=== PATIENT | female | born 1960 | race Caucasian/White ===

== ENCOUNTER 2017-01-10 21:50 | Emergency (ER) | payer MEDICAID ==
--- NOTE | 2017-01-10 22:01 | ERNOTE ---
Dyspnea - General Presenting Symptoms: other - cough Time Seen by Provider: 01/10/17 21:55 Source: patient Exam Limitations: no limitations - Immun/Allergies/Home Medications Immunizations: IMMUNIZATION HX Immunizations Up to Date Yes History of Influenza Vaccine Yes Hx Pneumococcal Vaccination No Allergies/Adverse Reactions: Allergies Penicillins Adverse Reaction (Mild, Verified 08/23/16 07:49) Other nausea red dye Adverse Reaction (Mild, Verified 08/23/16 07:49) nausea metals Allergy (Mild, Uncoded 08/23/16 07:49) Other skin irritation plastic tape Allergy (Mild, Uncoded 08/23/16 07:49) Other skin irritation Home Medications: HOME MEDICATIONS Isosorbide Mononitrate [Imdur] 60 mg PO DAILY 03/03/15 [Last Taken Unknown] Lisinopril [Zestril] 40 mg PO DAILY 03/03/15 [Last Taken Unknown] Metoprolol Succinate [Toprol Xl] 25 mg PO BID 03/03/15 [Last Taken 03/03/15 06: 00] Nitroglycerin [Nitrostat] 0.4 mg SL Q5MIN PRN 03/03/15 [Last Taken 03/03/15 06: 00] Simvastatin [Zocor] 20 mg PO HS 03/03/15 [Last Taken Unknown] Albuterol Sulfate [Ventolin Hfa] 2 puff IH QID PRN 09/20/15 [Last Taken Unknown] Acetaminophen [Tylenol] 650 mg PO Q6H PRN #1 tablet 02/06/16 [Last Taken Unknown ] Albuterol Sulfate [Albuterol Sulfate 2.5 MG/0.5ML] 2.5 mg IH QIDRT PRN #0 vial.neb 02/06/16 [Last Taken Unknown] DULoxetine HCL [Cymbalta] 60 mg PO BID capsule.sa 02/06/16 [Last Taken Unknown] Levothyroxine Sodium [Synthroid] 50 mcg PO DAILY@0700 tablet 02/06/16 [Last Taken Unknown] Amitriptyline HCl [Elavil] 10 mg PO BID 04/29/16 [Last Taken Unknown] Aspirin 81 mg PO DAILY 04/29/16 [Last Taken Unknown] Diazepam [Valium] 5 mg PO BID PRN 04/29/16 [Last Taken Unknown] Furosemide [Lasix] 160 mg PO DAILY 04/29/16 [Last Taken Unknown] Gabapentin [Neurontin] 600 mg PO TID 04/29/16 [Last Taken Unknown] Hydrochlorothiazide [Hydrodiuril] 25 mg PO DAILY 04/29/16 [Last Taken Unknown] hydrOXYzine HCL [Atarax] 25 mg PO QID 04/29/16 [Last Taken Unknown] Aspirin/Calcium Carbonate/Mag [Aspirin Buffered 325 mg Tab] 325 mg PO DAILY # 100 tablet 08/23/16 [Last Taken Unknown] Benzonatate [Tessalon Perle] 100 mg PO TID PRN #20 capsule 01/11/17 [Last Taken Unknown] guaiFENesin [Mucinex] 600 mg PO BID #10 tab.er.12h 01/11/17 [Last Taken Unknown] - History of Present Illness Narrative: Pt states she has been coughing for 2 days. she is coughing so hard she has had 2 syncopal episodes Severity: moderate, severe Initiating event: Reports: upper resp illness Review of Systems - Review of Systems Constitutional: Present: See HPI, weakness, fatigue EYE: Present: no symptoms reported ENT: Present: nose congestion Respiratory: Present: See HPI Cardiology: Present: no symptoms reported Gastrointestinal/Abdominal: Present: no symptoms reported Genitourinary: Present: no symptoms reported Musculoskeletal: Present: no symptoms reported Skin: Present: no symptoms reported Neurological: Present: no symptoms reported Endocrine: Present: excessive sweating Hematologic/Lymphatic: Present: no symptoms reported Psych: Present: no symptoms reported - Patient's Past Medical History Patient History - Medical: Arthritis, Depression, Fibromyalgia, Hypothyroidism, Migraines, Obesity, Renal Failure, Seizures Patient History - Cardiac/Respiratory: COPD, CVA/Stroke, Hypertension, Hyperlipidemia, CPAP/BiPAP Home Use, Sleep Apnea Patient History - Cancer: No Hx of Cancer Patient History - Surgical Procedures: Cholecystectomy, Coronary Bypass Surgery , Cardiac stent, Gastric Bypass, Other Patient History - Other: None - Family History Mother Family History - Medical: , Diabetes Type 2 Family History - Cardiac/Respiratory: Cardiac Arrest, Hypertension Father Family History - Medical: Family History - Cardiac/Respiratory: Coronary Heart Disease, Hypertension, Peripheral Vascular Disease - Social History Living Situations: home Abuse History: No History of abuse Psych History: Hx of Depression Alcohol Use: none Drug Use: none - Immunizations Immunizations Up to Date: Yes Hx Pneumococcal Vaccination: No History of Influenza Vaccine: Yes Physical Exam - Physical Exam General Appearance: Present: wd/wn, alert, mild distress, obese Eye Exam: Normal inspection: bilateral, PERRL: bilateral Neck: Present: normal inspection, nontender Respiratory: Present: no respiratory distress, other - coarse lung sounds throughout Cardiovascular/Chest: Present: regular rate, rhythm Gastrointestinal/Abdominal: Present: normal bowel sounds, nontender Extremity Exam: Present: extremity edema Neurological Exam: Present: alert, oriented, normal mood/affect Skin Exam: Present: normal color, warm/dry Lymphatic Exam: Present: no adenopathy ED Progress - Results and Orders Patient's Lab Results:: I have reviewed the patient's lab results. Results and Orders: Laboratory Tests 01/10/17 01/10/17 22:15 22:15 WBC 10.0 Hgb 10.8 L Hct 33.1 L Plt Count 203 Sodium 140 Potassium 3.8 Chloride 99 Carbon Dioxide 33.3 H Anion Gap 11.5 BUN 31 H D Creatinine 1.82 H D Est GFR (Non-Af Amer) 30 L D Random Glucose 103 Calcium 9.5 Total Bilirubin 0.2 AST 14 ALT 12 L Alkaline Phosphatase 103 B-Natriuretic Peptide 169 Total Protein 7.3 Albumin 3.2 L - Vital Signs Patient's Vital Signs:: I have reviewed the patient's vital signs. - Progress/Reassessment Progress:: Improved Progress Note-Subjective: Tessalon perles helped greatly with cough while in ED Departure Clinical Impression: Bronchitis - Departure Disposition: Home Follow Up Needed Condition: Good Instructions: Acute Bronchitis Additional Instructions: See your regular doctor if not improving Referrals: Shonda Pereira DO [Primary Care Provider] - Prescriptions: Benzonatate [Tessalon Perle] 100 mg PO TID PRN #20 capsule PRN Reason: Cough guaiFENesin [Mucinex] 600 mg PO BID #10 tab.er.12h
--- OUTSIDE RECORDS SUMMARY | 2017-01-10 22:11 | XMS REPORT | Continuity of Care Document ---
:1960 Author Organization [facility] [place] [address] Care Team Providers Name Role Phone Unavailable Primary Care Provider Unavailable Source Comments This disclosure is being made pursuant to the [employer] program and maynot contain all information available regarding this patient.[facility] Active Allergies and Adverse Reactions Not on File Current Medications Be aware that medications may not be up to date as of this document. Alwaysverify current medications with the patient. Not on file Active Problems Not on file Social History Tobacco Use Types Packs/Day Years Used Date Never Assessed Plan of Care Health Maintenance Due Date Last Done Comments Retired-Pertussis Vaccine Adult 1977 Retired-Tetanus Vaccine Adult 1977 Pap Smear 1979 Mammogram 1998 Colonoscopy 2008 Well Adult Visit 2008 Retired-INFLUENZA VACCINE 06/17/2015 Results from Last 3 Months Not on file
--- OUTSIDE RECORDS SUMMARY | 2017-01-10 22:12 | XMS REPORT | Continuity of Care Document ---
:1960 Author Organization [facility] ([facility]) Address [place] [address] Phone [phone] Care Team Providers Name Role Phone Shonda Pereira Primary Care Provider [phone] Source Comments This disclosure is being made pursuant to the Care Everywhere program, applicable federal and state laws, and may not contain all informaitonavailable regarding this patient.[facility] ([facility]) Active Allergies and Adverse Reactions Allergen Noted Date Severity Reactions Comments Adhesive 09/17/2011 Rash Latex, Natural Rubber 08/31/2012 Rash Nickel 05/26/2012 Rash Penicillins 09/17/2011 Nausea & Vomiting Perfume Ht52 10/01/2011 Pruritus Very sensitive to some colognes/perfemes/sce nts Red Dye 09/17/2011 Nausea & Vomiting Current Medications Prescription Sig. Disp. Refills Start Date End Date Status isosorbide Take 1 Tab by mouth 60 Tab 5 09/20/2011 Active mononitrate 30 mg CR daily. Indications: tablet Angina Pectoris Prevention lisinopril 40 mg Take 1 Tab by mouth 60 Tab 5 09/20/2011 Active tablet daily. Indications: Hypertension, Myocardial Infarction metoPROLol 25 mg Take 1 Tab by mouth 120 Tab 5 09/20/2011 Active tablet every 12 hours. Indications: Hypertension, Myocardial Infarction, Myocardial Reinfarction Prevention nitroglycerin 0.[address] 1 Tab under 1 Bottle 5 09/20/2011 Active SL tablet the tongue every 5 minutes as needed. Indications: Angina albuterol 90 Use 2 Puffs by 2 Inhaler 6 10/01/2011 Active mcg/Actuation inhalation every 6 inhaler hours as needed. Indications: Chronic Obstructive Pulmonary Disease simvastatin 20 mg Take 20 mg by mouth Active tablet every evening aspirin 81 mg EC Take 81 mg by mouth Active tablet daily DULoxetine 30 mg XR Take 30 mg by mouth Active capsule daily furosemide 80 mg Take 80 mg by mouth Active tablet daily pregabalin (LYRICA) Take 1 capsule (150 60 capsule 5 11/30/2016 Active 150 mg capsule mg total) by mouth 3 times daily. Active Problems Problem Noted Date Osteoarthritis 12/21/2011 Warthin tumor 12/21/2011 Fibromyalgia 12/21/2011 GERD (gastroesophageal reflux disease) 10/01/2011 Breast cancer screening 10/01/2011 COPD (chronic obstructive pulmonary disease) 10/01/2011 Myofascial pain 10/01/2011 CAD (coronary artery disease) 09/17/2011 S/P coronary artery stent placement 09/17/2011 Essential hypertension 09/17/2011 Other and unspecified hyperlipidemia 09/17/2011 TIA (transient ischemic attack) 09/17/2011 Parotid mass 09/17/2011 Most Recent Encounters Date Type Specialty Providers Description 12/01/2016 Telephone Neurology Surinder Goncalves MD 11/29/2016 Refill Neurology Surinder Goncalves MD Dx: Idiopathic peripheral neuropathy (Primary Dx) 11/29/2016 Telephone Neurology Surinder Goncalves MD Chief Comp: Follow- up Immunizations Name Dates Previously Given Next Due Influenza, PF 09/20/2011 Influenza, high dose 08/03/2016 Pneumococcal Polysaccharide, PPSV23 (Pneumovax 23) 09/19/2011 Tdap 12/21/2011 Social History Tobacco Use Types Packs/Day Years Used Date Current Every Day Smoker Cigarettes 1 12 Smokeless Tobacco: Never Used Tobacco Cessation:Counseling Given: Yes Comments:eventually would like to quit Alcohol Use Drinks/Week oz/Week Comments No Last Filed Vital Signs Vital Sign Reading Time Taken Blood Pressure 103/61 08/18/2016 10:09 AM CDT Pulse 80 08/18/2016 10:09 AM CDT Temperature 35.8 C (96.4 F) 04/10/2015 10:56 AM CDT Respiratory Rate 20 02/06/2013 12:56 PM CDT Height 1.702 m (5' 7") 08/18/2016 10:09 AM CDT Weight 163.295 kg (360 lb) 08/18/2016 10:09 AM CDT Body Mass Index 56.37 08/18/2016 10:09 AM CDT Oxygen Saturation 95% 02/06/2013 7:30 PM CDT Plan of Care Health Maintenance Due Date Last Done Comments HCV Screening 1960 Hepatitis B Vaccine (1 of 3 - 1960 Primary Series) MMR Vaccine 1976 Cervical Cancer Screening 1988 Colonoscopy 03/27/2008 Sigmoidoscopy Colon Cancer 2008 Screening FOBT Colon Cancer Screening 09/19/2012 09/19/2011 Mammogram 09/22/2013 09/22/2012, Additional history exists 02/07/2012, 12/21/2011 Lipid Disorder Screening 09/18/2016 09/18/2011 Td Vaccine 12/20/2021 12/21/2011 Pneumococcal Vaccine Completed 09/19/2011 Tdap Vaccine Completed 12/21/2011 Influenza Vaccine: Seasonal Completed 08/03/2016, 09/20/2011 Results from Last 3 Months Not on file
[2017-01-10 22:21] LABS: Hematocrit 33.1 % (37.0-47.0); Hemoglobin 10.8 gm/dL (12.5-16.0); Mean Cell Volume 91.2 fl (78-100); Mean Corpuscular Hemoglobin 29.8 pg (27-31); Mean Corpuscular Hgb Conc 32.6 g/dl (32-36); Mean Platelet Volume 9.5 fl (6.0-9.5); Neutrophil # 5.9 K/mm3 (1.3-6.0); Neutrophil % 58.8 % (42-75.0); Platelet Count 203 K/mm3 (150-450); Red Blood Count 3.63 M/mm3 (4.2-5.4); Red Cell Distribution Width 14.6 % (11.5-14.0)
[2017-01-10 22:42] LABS: Albumin * 3.2 gm/dl (3.4-5.0); Anion Gap 11.5 mmol/L (6.8-13.8); Bilirubin, Total 0.2 mg/dL (0.0-1.1); Ca. Corrected For Albumin 9.8 mg/dL (8.4-10.2); Calcium * 9.5 mg/dL (7.9-10.9); Carbon Dioxide 33.3 mmol/L (24-32.6); Potassium 3.8 mmol/L (3.4-4.6); Total Protein 7.3 gm/dL (6.2-8.2)
[2017-01-10] MEDS ORDERED: NORMAL SALINE 1,000 ML IV ONE (23:07)
[2017-01-10] MEDS ORDERED: BENZONATATE 100 MG CAPSULE PO ONE ×2 (23:30→23:32)
[2017-01-11] MEDS ORDERED: ACETAMINOPHEN 500 MG TABLET PO ONE (01:17)
[2017-01-11 01:35] VITALS: BP 112/74
== END 2017-01-11 02:00 | disposition home or self-care (01) ==
LOC: ER 21:50
DX: J40 Bronchitis, not specified as acute or chronic (principal)

== ENCOUNTER 2017-01-15 20:06 | Emergency (ER) | payer MEDICAID ==
--- NOTE | 2017-01-15 21:54 | ERNOTE ---
Medical Problem HPI - Narrative Date of Service: 01/15/17 - General Chief Complaint: General Assessment Time Seen by Provider: 01/15/17 21:52 Source: patient Exam Limitations: no limitations - Immun/Allergies/Home Medications Immunizations: IMMUNIZATION HX Immunizations Up to Date Yes History of Influenza Vaccine Yes Hx Pneumococcal Vaccination No Allergies/Adverse Reactions: Allergies Penicillins Adverse Reaction (Mild, Verified 01/15/17 20:42) Other nausea red dye Adverse Reaction (Mild, Verified 01/15/17 20:42) nausea metals Allergy (Mild, Uncoded 01/15/17 20:42) Other skin irritation plastic tape Allergy (Mild, Uncoded 01/15/17 20:42) Other skin irritation Home Medications: HOME MEDICATIONS Isosorbide Mononitrate [Imdur] 60 mg PO DAILY 03/03/15 [Last Taken Unknown] Lisinopril [Zestril] 40 mg PO DAILY 03/03/15 [Last Taken Unknown] Metoprolol Succinate [Toprol Xl] 25 mg PO BID 03/03/15 [Last Taken 03/03/15 06: 00] Nitroglycerin [Nitrostat] 0.4 mg SL Q5MIN PRN 03/03/15 [Last Taken 03/03/15 06: 00] Simvastatin [Zocor] 20 mg PO HS 03/03/15 [Last Taken Unknown] Albuterol Sulfate [Ventolin Hfa] 2 puff IH QID PRN 09/20/15 [Last Taken Unknown] Acetaminophen [Tylenol] 650 mg PO Q6H PRN #1 tablet 02/06/16 [Last Taken Unknown ] Albuterol Sulfate [Albuterol Sulfate 2.5 MG/0.5ML] 2.5 mg IH QIDRT PRN #0 vial.neb 02/06/16 [Last Taken Unknown] DULoxetine HCL [Cymbalta] 60 mg PO BID capsule.sa 02/06/16 [Last Taken Unknown] Levothyroxine Sodium [Synthroid] 50 mcg PO DAILY@0700 tablet 02/06/16 [Last Taken Unknown] Amitriptyline HCl [Elavil] 10 mg PO BID 04/29/16 [Last Taken Unknown] Aspirin 81 mg PO DAILY 04/29/16 [Last Taken Unknown] Diazepam [Valium] 5 mg PO BID PRN 04/29/16 [Last Taken Unknown] Furosemide [Lasix] 160 mg PO DAILY 04/29/16 [Last Taken Unknown] Gabapentin [Neurontin] 600 mg PO TID 04/29/16 [Last Taken Unknown] Hydrochlorothiazide [Hydrodiuril] 25 mg PO DAILY 04/29/16 [Last Taken Unknown] hydrOXYzine HCL [Atarax] 25 mg PO QID 04/29/16 [Last Taken Unknown] Aspirin/Calcium Carbonate/Mag [Aspirin Buffered 325 mg Tab] 325 mg PO DAILY # 100 tablet 08/23/16 [Last Taken Unknown] Benzonatate [Tessalon Perle] 100 mg PO TID PRN #20 capsule 01/11/17 [Last Taken Unknown] guaiFENesin [Mucinex] 600 mg PO BID #10 tab.er.12h 01/11/17 [Last Taken Unknown] - History of Present History Narrative: COUGHING TIMES 1 WEEK. NO FEVER. GIVEN A RX FOR COUGH MEDICATION BY SOMEONE 3 DAYS AGO BUT NEVER FILLED IT DUE TO "FINANCIAL DIFFICULTIES" . SHE IS A SMOKER , HAD STOPPED FOR 10 DAYS AND RECENTLY STARTED SMOKING AGAIN. IT SOUNDS LIKE SHE WAS PRESCRIBED TESSALON. SHE SAYS SHE COUGHS SO HARD SHE GETS SORENESS TO HER LEFT ABDOMEN AREA. SHE IS NOT USING ANY HOME REMEDIES FOR COUGH. Review of Systems - Review of Systems Constitutional: Present: See HPI ENT: Present: no symptoms reported Respiratory: Present: cough. Absent: shortness of breath, wheezing Gastrointestinal/Abdominal: Present: See HPI, abdominal pain - WITH COUGH TO LEFT SIDE Genitourinary: Present: no symptoms reported Musculoskeletal: Present: no symptoms reported Skin: Present: no symptoms reported Psych: Present: no symptoms reported All Other Systems: All systems neg except as marked - Patient's Past Medical History Patient History - Medical: Arthritis, Depression, Fibromyalgia, Hypothyroidism, Migraines, Obesity, Renal Failure, Seizures Patient History - Cardiac/Respiratory: COPD, CVA/Stroke, Hypertension, Hyperlipidemia, CPAP/BiPAP Home Use, Sleep Apnea Patient History - Cancer: No Hx of Cancer Patient History - Surgical Procedures: Cholecystectomy, Coronary Bypass Surgery , Cardiac stent, Gastric Bypass, Other Patient History - Other: None - Family History Mother Family History - Medical: , Diabetes Type 2 Family History - Cardiac/Respiratory: Cardiac Arrest, Hypertension Father Family History - Medical: Family History - Cardiac/Respiratory: Coronary Heart Disease, Hypertension, Peripheral Vascular Disease - Social History Living Situations: home Abuse History: No History of abuse Psych History: Hx of Depression Smoking Status: Current every day smoker Patient requests Smoking Cessation Consult: No Initiate information on Smoking Cessation: No Alcohol Use: none Drug Use: none - Immunizations Immunizations Up to Date: Yes Hx Pneumococcal Vaccination: No History of Influenza Vaccine: Yes Physical Exam - Physical Exam General Appearance: Present: wd/wn, alert, no apparent distress, other - PT IS QUITE OBESE AND SMELL OF CIGARETTE SMOKE BUT OTHERWISE A & O & NAD. NO COUGHING NOTED IN THE ER. Ears, Nose, Throat: Present: normal ENT inspection Neck: Present: normal inspection, nontender Respiratory: Present: no respiratory distress, normal breath sounds, no accessory muscle use, chest nontender, lungs clear Cardiovascular/Chest: Present: regular rate, rhythm, no murmur, normal peripheral pulses Neurological Exam: Present: alert, oriented Skin Exam: Present: normal color ED Progress - Vital Signs Vital Signs: Vital Signs 01/15/17 20:35 Temperature 36.9 C Pulse Rate 72 Respiratory 20 Rate Blood Pressure 150/74 O2 Sat by Pulse 97 Oximetry - Progress/Reassessment Chief Complaint: General Assessment Departure - Departure Clinical Impression: Cough in adult patient, Smoking hx Disposition: Home self-care Condition: Good Instructions: Cough, Adult, [id number], Smoking Cessation, Tips for Success, [id number] Additional Instructions: INCREASE CLEAR LIQUIDS. TRIAL OF HOT TEA WITH LEMON AND HONEY WHICH HAS BEEN SHOWN TO WORK WELL FOR COUGH ANY COUGH MEDICATIONS. CONTINUE TO WORK OF STOPPING SMOKING. HOLD A PILLOW AGAINST YOUR SIDE WHEN YOU DO COUGH TO HELP LESSEN THE SORENESS. YOU CAN TRY OVER THE COUNTER COUGH MEDS OR COUGH DROPS OR MEDICATION LIKE CHLORASEPTIC THROAT SPRAY WHICH MAY HELP DECREASE THE TICKLE THAT STARTS THE COUGH. USE COOL MIST VAPORIZER, OR SIT IT THE BATHROOM WITH STEAMY SHOWER TO HELP[ SETTLE THE COUGH. SEE YOUR FAMILY DOCTOR IF FURTHER PROBLEMS. Referrals: Shonda Pereira DO [Primary Care Provider] -
[2017-01-15 22:23] VITALS: BP 128/77
--- OUTSIDE RECORDS SUMMARY | 2017-01-15 22:25 | XMS REPORT | Continuity of Care Document ---
:1960 Author Organization [facility] [place] [address] Care Team Providers Name Role Phone Unavailable Primary Care Provider Unavailable Source Comments This disclosure is being made pursuant to the [employer] program and maynot contain all information available regarding this patient.[facility] Active Allergies and Adverse Reactions Not on [...]
--- OUTSIDE RECORDS SUMMARY | 2017-01-15 22:25 | XMS REPORT | Continuity of Care Document ---
:1960 Author Organization [facility] ([facility]) [place] [address] Phone [phone] Care Team Providers Name Role Phone Shonda Pereira Primary Care Provider [phone] Source Comments This disclosure is being made pursuant to the Care Everywhere program, applicable federal and state laws, and may not contain all informaitonavailable regarding this patient.[facility] ([facility]) Active Allergies and Adverse Reactions Allergen Noted [...]
== END 2017-01-15 22:29 | disposition home or self-care (01) ==
LOC: ER 20:06
DX: R05 Cough (principal); Z72.0 Tobacco use